=== PATIENT | male | born 1970 | race Caucasian/White ===

== ENCOUNTER 2018-06-26 07:09 | Day surgery (SDC) | payer MEDICAID, OTHER ==
[2018-06-26] MEDS ORDERED: Propofol 200 MG/20 ML SDV ONE (07:30)
[2018-06-26] MEDS ORDERED: Sodium Chloride 0.9% 1,000 ML IV SCH (07:30)
[2018-06-26] MEDS ORDERED: fentaNYL 100 MCG/2 ML SDV ONE (07:31)
[2018-06-26] MEDS ORDERED: Midazolam 1 MG/ML 2 ML SDV ONE (07:31)
--- NOTE | 2018-06-26 11:49 | OR ---
DATE OF PROCEDURE: 06/26/2018 PROCEDURES: 1. EGD. 2. Proximal esophagus biopsy. 3. Navarro pH wireless monitor placement. COMPLICATIONS: None. FEED MILL TENDER: None. ANESTHESIA: MAC. PREOPERATIVE DIAGNOSIS: Epigastric pain. POSTOPERATIVE DIAGNOSIS: Epigastric pain. RISKS: Risks, benefits, alternatives, and limitations including, but not limited to infection, bleeding, and perforation were explained to the patient, who wished to proceed. PROCEDURE IN DETAIL: The patient was placed in left lateral decubitus position. The EGD scope was introduced and advanced atraumatically to the second part of the duodenum. On retroflex, there was no hiatal hernia, no gastritis, and no ulcerations. The GE junction was measured to be at 42 cm. In the proximal esophagus, there was a plaque-like lesion. The proximal esophagus was biopsied using cold biopsy forceps. At 36 cm from the bite block, the wireless pH monitor device was placed by applying suction for 30 seconds, deployment of the device, removal of the carrier and then reintroduction of the EGD scope, which confirmed proper microchip placement. The procedure was terminated. The patient tolerated the procedure well. Navi Nino MD /[id number]
== END 2018-06-26 09:50 | disposition home or self-care (01) ==
LOC: JP.SDS 07:09
PROVIDERS: ATTEND Surgery
DX: R10.13 Epigastric pain (principal); K22.8 Other specified diseases of esophagus; J45.909 Unspecified asthma, uncomplicated; K21.9 Gastro-esophageal reflux disease without esophagitis
CPT/HCPCS: 43239; J2250; J2704; J3010; J7030